=== PATIENT | male | born 1950 | race Caucasian/White ===

== ENCOUNTER → 2019-03-18 | Outpatient (REF) | payer OTHER ==
[2019-03-18 16:11] LABS: PLATELET COUNT, AUTOMATED 243 10^3/uL (150-450)
[2019-03-18 16:27] LABS: INR 1.15; PARTIAL THROMBOPLASTIN TIME 35.7 SECONDS (25.0-38.4); PROTHROMBIN TIME 14.4 SECONDS (11.8-14.0)
== END ==
LOC: M LABDRAW1 15:30
PROVIDERS: ATTEND Physical Medicine & Rehabilitation
DX: Z01.812 Encounter for preprocedural laboratory examination (principal)

== ENCOUNTER → 2019-04-04 | Outpatient (CLI) | payer OTHER ==
--- NOTE | 2019-04-04 14:04 | REP ---
WHOLE BODY BONE SCAN: Following the intravenous administration of 22 millicuries of technetium 99m MDP, patient's whole body is imaged in the anterior and posterior projections with additional oblique and lateral views obtained. There is a region of increased uptake in the distal left forearm at the site of a fracture, as seen on plain films from 02/18/2019, in the distal left ulna. There appears to be arthritic uptake in the anterior cervical spine. There appears to be arthritic uptake at the posterior facets of L4. No other significant foci of abnormal uptake are seen in the axial or appendicular skeleton. Renal and bladder activity are seen. IMPRESSION: There appears to be mild arthritic uptake in the anterior cervical spine and at the posterior facets of L4. Region of increased uptake in the region of the distal left ulna consistent with recent fracture at that location. Electronically Signed by Kenneth Richter MD 04/04/2019 04:32 P
== END ==
LOC: M RAD 07:59
PROVIDERS: ATTEND Physical Medicine & Rehabilitation
DX: M51.36 Other intervertebral disc degeneration, lumbar region (principal)

== ENCOUNTER → 2019-05-07 | Outpatient (REF) | payer OTHER ==
[2019-05-07 13:05] LABS: PLATELET COUNT, AUTOMATED 183 10^3/uL (150-450)
[2019-05-07 13:17] LABS: INR 1.04; PROTHROMBIN TIME 13.3 SECONDS (11.8-14.0)
[2019-05-07 13:18] LABS: PARTIAL THROMBOPLASTIN TIME 32.4 SECONDS (25.0-38.4)
== END ==
LOC: M LABDRWAD 12:40
PROVIDERS: ATTEND Physical Medicine & Rehabilitation
DX: Z01.812 Encounter for preprocedural laboratory examination (principal)

== ENCOUNTER → 2019-05-09 | Outpatient (CLI) | payer OTHER ==
[~2019-05-09] MED LIST: PROHANCE 279.3MG/ML 15ML VIAL (A9576) As Ordered ONE
--- NOTE | 2019-05-09 12:43 | REP ---
MRI PELVIS WITH AND WITHOUT CONTRAST: TECHNIQUE: Multiple sequences obtained in the axial, coronal, and sagittal planes prior to and following the intravenous administration of 15 mL ProHance. There is diffuse heterogeneous marrow signal which is nonspecific. There is mild focal marrow edema in the distal coccyx. This could represent mild stress related changes in the bone or bone bruising. Tiny synovial herniation pit is seen in a subcortical location in each anterior femoral head. Otherwise no other area of bone marrow edema is seen. There is no occult fracture. There is no suspicious enhancing bone lesion of the pelvic osseous structures. I see no adenopathy in the pelvis and there is no evidence of pelvic mass. Sigmoid diverticulosis is noted without evidence of acute diverticulitis. No free fluid is seen. Urinary bladder is mildly distended. Prostate appears enlarged and impresses upon the base of the bladder. IMPRESSION: Mild marrow edema in the distal coccyx may represent mild stress related changes or bone bruise. Otherwise no evidence of occult fracture of the pelvic osseous structures and no evidence of enhancing metastatic lesion. Electronically Signed by Kenneth Richter MD 05/13/2019 08:48 A
== END ==
LOC: M RAD 09:57
PROVIDERS: ATTEND Physical Medicine & Rehabilitation
DX: M51.37 Other intervertebral disc degeneration, lumbosacral region (principal); M47.812 Spondylosis without myelopathy or radiculopathy, cervical region; M48.07 Spinal stenosis, lumbosacral region
CPT/HCPCS: 72197; A9576

== ENCOUNTER → 2020-11-17 | Outpatient (CLI) | payer OTHER ==
--- NOTE | 2020-11-17 13:13 | REP ---
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 COMPARISON: None. TECHNIQUE: Sagittal T1, T2, STIR, axial T1 and T2 weighted MR images of the lumbar spine are obtained. FINDINGS: The lumbar canal appears diffusely narrow, now with diffuse disc bulges further narrowing the canal. On the sagittal T2 weighted images, there appears to be significant canal stenosis at the L3-4 level. Conus ends normally at L1 level. On the review of axial images, At L1-2 diffuse disc bulge with ucydtpbb-zw-kyvucy right foraminal narrowing, moderate left foraminal narrowing and mokf-vc-fcpgsadu canal stenosis. At L2-3 global disc bulges eccentric to the left with fvebnohn-fv-pzjoeo canal stenosis, and bilateral lateral recess stenosis and glpeemyd-dx-upfwql bilateral foraminal narrowing. At L3-4 diffuse disc bulge and facet hypertrophic degenerative changes with wzaurnab-wf-givsfv canal stenosis and foraminal disc herniation on the right with severe right foraminal narrowing, moderate on the left. At L4-5 global disc bulge with cjzr-wk-pqbkisaq canal stenosis and moderate bilateral foraminal narrowing. Also noted bilateral lateral recess narrowing at this level. At L5-S1 diffuse disc bulge with mild canal narrowing and moderate bilateral foraminal narrowing. IMPRESSION: 1. 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 2. Canal stenosis is wpxjsefm-zu-nafqlf at L2-3 and L3-4 levels. 3. At least moderate foraminal narrowing at every level. At L3-4 on the right there is foraminal disc herniation with severe right lateral recess and right foraminal narrowing. <Electronically signed by Jayme Pardo > 11/17/20 [id number]
== END ==
LOC: M PLARAD 09:51
DX: M51.36 Other intervertebral disc degeneration, lumbar region (principal); M99.63 Osseous and subluxation stenosis of intervertebral foramina of lumbar region; M48.061 Spinal stenosis, lumbar region without neurogenic claudication; M51.26 Other intervertebral disc displacement, lumbar region

== ENCOUNTER → 2022-12-01 | Outpatient (REF) | payer OTHER | LOC: M LAB REF 14:28 | PROVIDERS: ATTEND Family Medicine | DX: R06.02 Shortness of breath (principal); R07.89 Other chest pain ==

== ENCOUNTER → 2023-02-26 | Outpatient (REF) | payer OTHER | LOC: M LAB REF 16:17 | PROVIDERS: ATTEND Family Medicine | DX: M79.632 Pain in left forearm (principal) ==

== ENCOUNTER → 2023-10-18 | Outpatient (CLI) | payer OTHER | LOC: M WUC 08:45 | PROVIDERS: ATTEND Family Medicine | DX: R06.02 Shortness of breath (principal); R91.1 Solitary pulmonary nodule ==

== ENCOUNTER → 2023-12-10 | Outpatient (CLI) | payer MEDICARE, OTHER | LOC: M PLAIMG 14:10 | PROVIDERS: ATTEND Family Medicine | DX: R06.02 Shortness of breath (principal) ==

== ENCOUNTER → 2024-04-04 | Outpatient (CLI) | payer MEDICARE ==
[~2024-04-04] MED LIST changes: +ISOVUE-370 76% 100ML VIAL As Ordered ONE; -PROHANCE 279.3MG/ML 15ML VIAL (A9576) As Ordered ONE
== END ==
LOC: M RAD 08:08
PROVIDERS: ATTEND Family Medicine
DX: J93.9 Pneumothorax, unspecified (principal); R06.02 Shortness of breath; R91.8 Other nonspecific abnormal finding of lung field; R59.0 Localized enlarged lymph nodes
CPT/HCPCS: 71260; Q9967

== ENCOUNTER → 2024-10-16 | Outpatient (REF) | payer MEDICARE | LOC: M SFHCDERM 13:29 | PROVIDERS: ATTEND Nurse Practitioner Family | DX: B07.9 Viral wart, unspecified (principal) ==

== ENCOUNTER → 2025-04-14 | Outpatient (CLI) | payer MEDICARE | LOC: M RAD 10:17 | PROVIDERS: ATTEND Family Medicine | DX: R10.812 Left upper quadrant abdominal tenderness (principal); R93.2 Abnormal findings on diagnostic imaging of liver and biliary tract ==

== ENCOUNTER 2025-05-08 04:37 | Emergency (ER) | payer MEDICARE ==
[~2025-05-08] VITALS: Ht 172.7 cm; Wt 82.2 kg
[2025-05-08 06:02] LABS: APPEARANCE, URINE MANUAL CLOUDY (CLEAR); COLOR, URINE MANUAL BROWN (YELLOW); PH,URINE MAN 6.0 UNITS (5.0 - 7.0); PROTEIN, URINE MANUAL 3+ mg/dL (NEGATIVE); SPECIFIC GRAVITY,URINE MANUAL 1.020 (1.002-1.035)
[2025-05-08 06:03] LABS: BILIRUBIN, URINE MANUAL NEGATIVE (NEGATIVE); BLOOD URINE MANUAL POSITIVE (NEGATIVE); GLUCOSE, URINE (UA) MANUAL NEGATIVE (NEGATIVE); KETONE, URINE MANUAL 1+ mg/dL (NEGATIVE); LEUKOCYTE ESTERASE, URINE MAN POSITIVE (NEGATIVE); NITRITE, URINE MANUAL POSITIVE (NEGATIVE); UROBILINOGEN, URINE MANUAL NORMAL (NORMAL)
[2025-05-08 06:09] LABS: RBC, URINE TNTC /hpf (0-3); WBC, URINE TNTC /hpf (0-3)
[2025-05-08 06:10] LABS: BACTERIA, URINE LARGE AMOUNT; HYALINE CAST, URINE NONE SEEN /lpf (0-1); SQUAMOUS EPITHELIAL CELL URINE NONE SEEN /hpf (SMALL AMT)
[2025-05-08 06:59] LABS: BASO # 0.0 10^3/uL (0.0-0.2); BASO % 0.3 % (0.0-1.0); EOS # 0.1 10^3/uL (0.0-0.5); EOS % 0.5 % (0.0-3.0); LYMPH # 1.3 10^3/uL (1.5-5.0); LYMPH % 12.9 % (24.0-44.0); MONO # 0.8 10^3/uL (0.0-0.8); MONO % 7.7 % (2.0-8.0); NEUTROPHILS # 8.1 10^3/uL (1.5-8.5); NEUTROPHILS % 77.9 % (36.0-66.0); PLATELET COUNT, AUTOMATED 160 10^3/uL (150-450)
[2025-05-08 07:17] LABS: INR 1.09
[2025-05-08 07:30] LABS: ALT/SGPT 23 U/L (7.0-40); AST/SGOT 22 U/L (<34); CALCIUM LEVEL 8.9 MG/DL (8.3-10.6); CARBON DIOXIDE LEVEL 26 MMOL/L (20-31); CHLORIDE LEVEL 101 MMOL/L (98-107); CREATININE FOR GFR 0.75 MG/DL (0.70-1.30); GLOMERULAR FILTRATION RATE > 90.0 (>42); POTASSIUM SERUM 4.0 MMOL/L (3.5-5.1); SODIUM LEVEL 136 MMOL/L (136-145)
[2025-05-08] MEDS ORDERED: ISOVUE-370 76% 100 ML VIAL As Ordered ONE (07:56)
[2025-05-08] MEDS ORDERED: SULF1TAB23 PO (08:48)
[2025-05-08 08:54] VITALS: BP 149/73; TEMP 98.2; O2SAT 96
== END 2025-05-08 08:55 | disposition home or self-care (01) ==
LOC: M ED 04:37
DX: N30.01 Acute cystitis with hematuria (principal); C34.90 Malignant neoplasm of unspecified part of unspecified bronchus or lung; Z90.49 Acquired absence of other specified parts of digestive tract; Z79.2 Long term (current) use of antibiotics
CPT/HCPCS: 36415; 74177; 80053; 81000; 83605; 85025; 85610; 85730; 99284; Q9967